=== PATIENT | female | born 1985 | race Caucasian/White ===

== ENCOUNTER 2022-09-29 19:58 | Emergency (ER) | payer BC, SELFPAY ==
[2022-09-29] MEDS ORDERED: Ampicillin 2 GM VIAL ONE (20:59)
[2022-09-29] MEDS ORDERED: Piperacillin/Tazobactam 3.375 GM VIAL ONE (21:05)
[2022-09-29] MEDS ORDERED: Sodium Chloride 0.9% 100 ML ONE (21:06)
[2022-09-29] MEDS ORDERED: Ketorolac Tromethamine 30 MG/ML VIAL ONE (21:07)
== END 2022-09-29 22:29 | disposition home or self-care (01) ==
LOC: NAV ERS 19:58
DX: S61.250A Open bite of right index finger without damage to nail, initial encounter (principal); L03.011 Cellulitis of right finger; W55.01XA Bitten by cat, initial encounter
CPT/HCPCS: 96374; 96375; J0290; J1885; J2543; J3490